=== PATIENT | male | born 1960 | race Caucasian/White ===

== ENCOUNTER 2020-03-31 10:07 | Outpatient (CLI) | payer OTHER, SELFPAY ==
--- NOTE | ~2020-03-31 | XR_ITS ---
XR elbow RT min 3V DATE: 03/31/2020 10:27 INDICATION: Left elbow pain and swelling TECHNIQUE: 4 views COMPARISON: None FINDINGS: Mild dorsal soft tissue swelling. No fracture or dislocation or joint effusion. No perioste al reaction or bone destruction. IMPRESSION: No fracture or dislocation or joint effusion Reviewed, dictated and finalized at location A.
== END 2020-03-31 10:08 | disposition home or self-care (01) ==
PROVIDERS: PCP Internal Medicine; Visit Provider Nurse Practitioner
DX: M25.529 Pain in unspecified elbow (principal); M79.89 Other specified soft tissue disorders
CPT/HCPCS: 73080

== ENCOUNTER 2021-07-21 10:20 | Outpatient (CLI) | payer BC, SELFPAY ==
--- NOTE | 2021-07-21 | ECG_ITS ---
Measurements Intervals [place] Rate: 62 P: 25 MD: 228 QRS: 17 QRSD: 138 T: -24 QT: 400 QTc: 407 Interpretive Statements SINUS RHYTHM WITH FIRST DEGREE AV BLOCK RIGHT BUNDLE BRANCH BLOCK CONSIDER INFERIOR INFARCT, AGE INDETERMINATE ABNORMAL ECG Electronically Signed On 07-21-2021 11:06:45 CDT by Ramon Holley D.O.
[2021-07-21 10:44] LABS: Hematocrit 44.3 % (42.0-52.0); Hemoglobin 15.8 g/dL (14.0-18.0)
[2021-07-21 11:08] LABS: Estimated Glomerular Filt Rate > 60; Glucose 146 mg/dL (65-110)
[2021-07-21 11:51] LABS: Urine Cotinine NEGATIVE
[2021-07-21 13:01] LABS: Hemoglobin A1C 6.6 % (<5.7)
== END 2021-07-21 10:21 | disposition home or self-care (01) ==
PROVIDERS: PCP Internal Medicine; Visit Provider Orthopaedic Surgery
DX: E78.5 Hyperlipidemia, unspecified (principal); E78.1 Pure hyperglyceridemia; I10 Essential (primary) hypertension; E11.9 Type 2 diabetes mellitus without complications; Z01.818 Encounter for other preprocedural examination; M17.11 Unilateral primary osteoarthritis, right knee; I45.10 Unspecified right bundle-branch block; I44.0 Atrioventricular block, first degree
CPT/HCPCS: 80307; 82040; 82565; 82947; 83036; 85014; 85018; 93005

== ENCOUNTER 2021-09-06 09:39 | Outpatient (CLI) | payer BC, SELFPAY ==
[2021-09-06 10:58] LABS: Basophils Absolute Auto 0.1 K/mm3 (0.0-0.1); Eosinophils Absolute Auto 0.1 K/mm3 (0-0.3); Eosinophils Percent Auto 2.5 % (0-4.4); Hematocrit 46.4 % (42.0-52.0); Hemoglobin 16.2 g/dL (14.0-18.0); Immature Granulocyte Absolute 0.05 K/mm3 (0.00-0.031); Lymphocytes Absolute Auto 1.75 K/mm3 (0.9-3.2); Lymphocytes Percent Auto 34.3 % (18.3-44.2); Mean Corpuscular HGB Conc 34.9 g/dl (32-36); Mean Corpuscular Hemoglobin 33.2 pg (26-34); Mean Corpuscular Volume 95.1 fl (80-100); Mean Platelet Volume 8.7 fl (7.4-10.4); Monocytes Absolute Auto 0.5 K/mm3 (0.1-0.6); Monocytes Percent Auto 9.4 % (2.6-8.5); Neutrophils Absolute Auto 2.6 K/mm3 (1.3-6.7); Neutrophils Percent Auto 51.8 % (45.5-73.1); Platelet Count Result 238 k/mm3 (150-375); Red Blood Count 4.88 M/mm3 (4.6-6.20); Red Cell Distribution Width 12.1 % (11.5-14.5); White Blood Count 5.1 K/mm3 (4.5-10.0)
[2021-09-06 11:07] LABS: Albumin Level 4.9 g/dL (3.5-5.1); Urine Cotinine NEGATIVE
[2021-09-06 11:10] LABS: Anion Gap 10 mmol/L (8-16); Blood Urea Nitrogen 23 mg/dL (9-20); Calcium 9.9 mg/dL (8.4-10.2); Carbon Dioxide 25 mmol/L (22-30); Chloride 102 mmol/L (98-107); Estimated Glomerular Filt Rate > 60; Glucose 150 mg/dL (65-110); Potassium 4.2 mmol/L (3.4-5.0); Sodium 137 mmol/L (137-145)
== END 2021-09-06 09:40 | disposition home or self-care (01) ==
LOC: ANHSURGERY 09:43
PROVIDERS: Anesthesiology; PCP Internal Medicine; Visit Provider Orthopaedic Surgery
DX: Z01.812 Encounter for preprocedural laboratory examination (principal); M17.11 Unilateral primary osteoarthritis, right knee; E11.9 Type 2 diabetes mellitus without complications
CPT/HCPCS: 36415; 80048; 80307; 82040; 85025; 87081

== ENCOUNTER 2021-09-30 00:34 | Day surgery (SDC) | payer BC, SELFPAY ==
[2021-09-06 09:51] VITALS: BMI 28.9
--- NOTE | 2021-09-06 10:13 | PC.NURSE ---
Report to the Outpatient Waiting Room, entrance under the green pavilion located off [facility], at time 0600 on date _09/30/21 . OR Time: . - You and your visitor will be asked a series of questions to screen for COVID 19 for your protection. - A mask is required within the hospital. - Only one visitor is allowed at this time. Patient visitors will be guided where to wait when not with patient. Preoperative COVID Testing Requirements: No COVID Test needed if: (proof is required; if not received patient will have Rapid Test prior to entry) - Patient has received COVID Vaccine at least 14 days prior to procedure date or - Patient has positive COVID test result within last 90 days of surgery date. COVID Test needed if above criteria is not met If not COVID vaccinated a COVID test must be conducted within 72 hours of surgery and patient is asked to isolate self from time of testing until procedure. You will go to the [facility] for your COVID testing. The [facility] site is located at the corner of [address] [facility]. You will only be called if COVID results are positive and your surgeon may reschedule your elective surgery date. Patients may have clear liquids (water, carbonated beverages, clear teas, apple juice) until 3 hours prior to surgery with a maximum of 20 ounces. - No food from midnight until time of surgery - Infants may have breast milk until 4 hours before surgery, infant formula 6 hours prior to surgery. - Children will be allowed to drink immediately following surgery. If applicable, please bring a bottle or sippy cup to assist with drinking. Juice, water, soda, and popsicles are readily available. For infants on formula, please bring formula the day of surgery. Pacifiers are allowed. Take the following medications with a SIP of water the morning of surgery: _NONE Medications to discontinue per physician ___ASPIRIN AND ALEVE 7 DAYS PRE OP AND ALL VITAMINS AND SUPPLEMENTS 3 DAYS PRE OP Date to take last dose_ASPIRIN/ALEVE 09/22/21 VITAMINS AND SUPPLEMENTS 09/26/21 Please no make-up, nail albanian, hairspray, perfume, deodorant, or body powder the day of surgery. No jewelry (including any body piercings) or valuables the day of surgery, leave them at home. Please take a shower or bath the night before, or the morning of, surgery with an antibacterial soap. Wear comfortable, loose fitting clothing. Children are encouraged to wear pajamas. - Jewelry must be removed prior to entering the operating room. Rings and piercings that are not removed may be cut off. - The hospital will not accept responsibility for valuables. - Please leave all valuables, including medications, at home the day of surgery. TOTAL JOINT CLASS 09/08/21 AT 10 AM CLASSROOM 1&2 If you are going home after surgery, a licensed road driver must drive you home. - NO public transportation without another adult. - We recommend that an adult stay with you for 24 hours following discharge. - We also recommend that you do not drive, make important decision, drink alcoholic beverages, or take any drugs that were not prescribed by your health care provider for at least 24 hours after your discharge time. For Pediatric surgeries, we recommend two adults accompany the child home (only one inside the building at this time). Follow any additional instructions given to you from your surgeon. VERBAL instructions given to __PATIENT and asked if any additional questions and then verbalized understanding. Patient advised to call surgeon office or pre surgery nurse liaison [phone] if any additional questions.
[2021-09-06 10:29] VITALS: BP 119/76; PULSE 66; RESP 16; TEMP 36.2; O2SAT 99
--- NOTE | 2021-09-29 15:28 | P.PNAN_ITS ---
Anes - Initial Pre Proc Eval Procedure: Operation Date: 09/30/21 07:30 Proposed Procedures p Right Total Knee Arthroplasty - Phoenix Mclean MD Date/Time: 09/29/21 15:28 Surgeon: Phoenix Mclean MD Pre Op Diagnosis: primary oa right knee Patient Data Age: 61 Gender: M Height: 1.8 m Weight: 94 kg Last Vital Signs Temp 36.2 C L 09/06/21 10:29 Pulse 66 09/06/21 10:29 Resp 16 09/06/21 10:29 BP 119/76 09/06/21 10:29 Pulse Ox 99 09/06/21 10:29 Allergies Allergy/AdvReac Type Severity Reaction Status Date / Time sulfamethoxazole AdvReac Nausea Verified 09/30/21 06:43 Home Medications Medication Instructions Recorded Confirmed Type ascorbate calcium (vitamin C) 500 500 mg PO BID 10/24/19 09/30/21 History mg tablet aspirin 81 mg tablet,delayed 81 mg PO DAILY 10/24/19 09/30/21 History release multivitamin 1 tablet PO DAILY 10/24/19 09/30/21 History omega-3 fatty acids 1,000 mg 1,000 mg PO BID cap 06/05/20 09/30/21 History capsule blood sugar diagnostic #100 ea 06/08/21 09/06/21 Rx blood-glucose meter #1 ea 06/08/21 09/06/21 Rx lancets #100 ea 06/08/21 09/30/21 Rx acetaminophen [Tylenol] 650 mg PO PRN PRN 09/06/21 09/30/21 History amlodipine 5 mg PO QPM 09/06/21 09/30/21 History calcium carbonate [Tums E-X Sugar 300 mg PO PRN PRN 09/06/21 09/30/21 History Free] lisinopril 10 mg PO QPM 09/06/21 09/30/21 History naproxen sodium [Aleve] 220 mg PO Q12H PRN 09/06/21 09/30/21 History rosuvastatin 10 mg PO QPM 09/06/21 09/30/21 History metformin 500 mg PO BID 09/30/21 09/30/21 History Patient hx anesthesia problems: none Family hx anesthesia problems: none Results Review: All pre-operative results and documents have been reviewed as part of the pre-operative evaluation. [facility] Past Medical History Medical History (Updated 09/29/21 @ 15:28 by Eliecer Nair MD) Polk's palsy Chronic fatigue Erectile dysfunction Essential hypertension Hyperlipidemia Hypertriglyceridemia Nephrolithiasis RONALD (obstructive sleep apnea) Type 2 diabetes mellitus without complication, without long-term current use of insulin Social History Social History Additional smoking assessment comments: DENIES ANY FORM OF TOBACCO USE Alcohol intake: current Drinks per week: 1 Alcohol use details: occasionally Living arrangements: with family Spiritual care concerns: No Anes - Eval Final PreProcedure Day of Procedure 09/29/21 15:28 Patient weight: overweight Heart: regular rate and rhythm Lungs: clear to auscultation and normal air movement Airway: Mallampati scale class II Neurological: alert and oriented Last oral intake: >/= 8 hours ASA classification: III Emergent: no Anesthetic plan: proceed Anesthesia type and monitoring: general LMA Results Review: All pre-operative results and documents have been reviewed as part of the pre-operative evaluation. Informed Consent: The patient's anesthetic plan and its attendant risks and benefits were discussed with the patient/family/POA. Questions were solicited and answers provided to the satisfaction of the patient/family/POA.
--- NOTE | 2021-09-29 15:29 | WPDANESPNB ---
Anes - Peripheral Nerve Block Date/Time: 09/29/21 15:29 I have discussed with the patient/family/POA the placement of a peripheral nerve block for post-operative pain management, including associated risks, benefits, complications, and side effects. Alternative methods of post-operative analgesia were detailed. Questions were solicited and answers provided to the satisfaction of the patient/family/POA. Time-Out: A pre-procedural Time-Out was completed immediately before starting the procedure and confirmed: Patient Identification, Site, Procedure, Patient Position and the Availability of Requisite Equipment. Clinical Indications: Acute post-operative pain management requested by the operative surgeon. Nerve Block Insertion Note Anes-nerve block: adductor canal right Patient position: supine Skin prep: chlorhexidine Needle: 22 gauge, stimulating, insulated echogenic needle. Needle length: 80 mm Technique: ultrasound Technique comment: in plane Injectate: bupivacaine 0.25% with epi 5 mcg/ml (30cc) Observations: tolerated well Complications: none Procedure start time:: 720 Procedure end time:: 725
[2021-09-30] VITALS (9 sets, daily range): BP systolic 123–149; BP diastolic 80–98; PULSE 62–73; RESP 12–16; TEMP 35.5–36.8; O2SAT 92–100
--- NOTE | ~2021-09-30 | XR_ITS ---
EXAMINATION: XR knee RT 2V DATE: 09/30/2021 10:11 INDICATION: Total right knee arthroplasty. Postop. TECHNIQUE: 2 views of right knee were obtained. COMPARISON: Right knee radiographs 09/22/2015 FINDINGS: There is a total right knee arthroplasty with patellar resurfacing in near-anatomic alignme nt. No fracture. There is gas in the knee joint and soft tissues, consistent with recent surgery. IMPRESSION: 1. Total right knee arthroplasty in near-anatomic alignment. Reviewed, dictated and finalized at location A. OWS TESTER
[2021-09-30] MEDS: LACTATED RINGERS 1,000 ML 30 ML IV CONT ×2 (06:28→09:47)
[2021-09-30] MEDS: ACETAMINOPHEN 500 MG TABLET 1000 MG PO (06:32)
[2021-09-30] MEDS: TRANEXAMIC ACID 1,000MG/ISO100 1,000 MG/100 ML BAG 200 MG IVPB (06:33)
[2021-09-30 06:35] LABS: Glucose Point of Care 128 mg/dl (65-105)
--- NOTE | 2021-09-30 07:12 | WPDHPUPDATE1 ---
History and Physical Update Update Date/Time: 09/30/21 07:12 History and Physical has been reviewed, including an updated exam of the patient. There are NO changes in the patient's condition. Risks, benefits, and alternatives have been discussed and questions answered. Patient agrees to proceed with procedure.
[2021-09-30] MEDS: ceFAZolin 2 GM/D5W 50 ML 2 GM/50 ML BAG IVPB ×2 (07:34→13:30)
[2021-09-30 10:05] LABS: Glucose Point of Care 198 mg/dl (65-105)
--- NOTE | 2021-09-30 10:05 | SUR.PHASEI ---
1005 2 VIEWS OF PORTABLE XRAY TAKEN OF RT KNEE.
[2021-09-30] MEDS: fentaNYL CITRATE INJ (*CRX) 100 MCG/2 ML VIAL 25 MCG IV PUSH ×3 (10:27→11:03)
[2021-09-30] MEDS: SODIUM CHLORIDE 0.9% IV 1,000 ML 125 ML IV CONT (12:17)
[2021-09-30] MEDS: oxyCODONE HCL (*CRX) 5 MG TAB IR PO (12:32)
--- NOTE | 2021-09-30 12:53 | ADMGEN ---
This patient, Ayush Salinas, was admitted to [facility]. Patient/family oriented to hospital policies and general routines including ID bracelet, bed and alarms, visiting hours, pain management, procedures, bathroom and other care routines, personal items, smoking policy, room service/diet, and visiting hours. Information on how to activate the Rapid Response Team has been discussed. Patient/Family are encouraged to report perceived risks to care and to ask questions if they do not understand what they are told or what they should do.
--- NOTE | 2021-09-30 13:43 | PM.DS ---
DS: Admitting Diagnosis Discharge Date 09/30/21 Admitting Diagnosis OA knee Right DS: Discharge Diagnosis Discharge Diagnosis (1) Status post total right knee replacement: Code(s): Z96.651 - Presence of right artificial knee joint Status: Acute Assessment and Plan: Postop day 1: Right total knee arthroplasty. Patient tolerated procedure well. No complications. Pain manageable with pain medication. No numbness or tingling. Would like to go home same day. This is reasonable. We had a lengthy discussion regarding postoperative wound care, limitations, expectations, and exercises. Patient shows good understanding. He has had initial physical therapy and is tolerating it well. DVT prophylaxis: 81 mg baby aspirin b.i.d. for 14 days. Short frequent walks. Compression socks. Pain medication: Percocet. Meloxicam. Prednisone. Patient has followup appointment with Dr. Mclean in 3 weeks. DS: Summary Hospital Course Reason for hospitalization: Total knee arthroplasty Hospital Course: Patient tolerated procedure well. Has had initial PT/OT and made good progress. Status at Discharge Functional status at discharge: uses cane/walker Overall status at discharge: patient is progressing back to baseline Time Spent with Patient Time attestation: Total time spent providing and/or coordinating discharge services: Exam Narrative: Normal weight Male. Resting comfortably in bed. No acute distress. A&O x3. Wearing compression socks bilaterally. Dressing intact with no drainage. Mild swelling. No ecchymosis. No erythema. No hematoma. ROM limited to pain. Calf nontender. Neurologic status intact. No varicosities. Distal pulses palpable. DS: Data Data Completed and Pending Labs on day of discharge: Labs from last 24 hours 09/30/21 09/30/21 09/30/21 10:03 06:29 06:20 POC Capillary Glucose 198 H 128 H Blood Type B Positive Antibody Screen Negative Discharge Plan Discharge Patient Disposition: Home, Self-Care Discharge Instructions: See instruction sheet Stand Alone Forms: General Discharge Instructions Follow-up/Referrals: Kriss Beth PA [Physician Survey Party Chief] - Discharge Medications: New meloxicam 15 mg tablet 15 mg PO DAILY Qty: 30 RF: 0 aspirin 81 mg tablet,delayed release (DR/EC) 81 mg PO BID 14 Days Qty: 28 RF: 0 oxycodone-acetaminophen 5-325 mg tablet 1 - 2 tablet PO Q4-6H MDD 6 PRN (Reason: pain) Qty: 30 RF: 0 prednisone 5 mg tablet 5 mg PO DAILY 21 Days Qty: 21 RF: 0 Continued multivitamin Tablet 1 tablet PO DAILY RF: 0 ascorbate calcium (vitamin C) 500 mg tablet 500 mg PO BID RF: 0 omega-3 fatty acids [Fish Oil Concentrate] 1,000 mg capsule 1,000 mg PO BID RF: 0 amlodipine 5 mg tablet 5 mg PO QPM RF: 0 lisinopril 10 mg tablet 10 mg PO QPM RF: 0 rosuvastatin 10 mg tablet 10 mg PO QPM RF: 0 acetaminophen [Tylenol] 325 mg Capsule 650 mg PO PRN PRN (Reason: Pain) RF: 0 calcium carbonate 300 mg (750 mg) Tablet,Chewable 300 mg PO PRN PRN (Reason: Heartburn) RF: 0 metformin 500 mg tablet 500 mg PO BID RF: 0 (DME) blood-glucose meter [Accu-Chek Guide Me Glucose Mtr] Misc See Rx Instructions .Route Qty: 1 RF: 0 (DME) Accu-Chek Guide test strips Strip See Rx Instructions .Route Qty: 100 RF: 3 (DME) lancets [Accu-Chek Softclix Lancets] Misc See Rx Instructions .Route Qty: 100 RF: 3 Held aspirin [Adult Low Dose Aspirin] 81 mg tablet,delayed release (DR/EC) 81 mg PO DAILY RF: 0 Hold Instructions: Resume on 10/14/21. naproxen sodium [Aleve] 220 mg Tablet 220 mg PO Q12H PRN (Reason: Pain) RF: 0 Hold Instructions: Resume on 10/31/21.
--- NOTE | 2021-09-30 14:21 | PCOTNOTE ---
Order cancelled being discharged after being evaluated by physical therapy.
--- NOTE | 2021-09-30 16:33 | P.OP_ITS ---
Procedure Note - Detailed Date of Procedure 09/30/21 Pre-op Diagnosis primary oa right knee Post-op Diagnosis same Procedure Performed Right total knee arthroplasty. Surgeon Phoenix Mclean MD Feed Management Advisor Kriss Beth PA-C Anesthesia general Indications Severe patellofemoral arthritis. Failed conservative treatment. Findings Good bone quality. 8 mm distal femoral resection. Slight relief of the PCL on the tibia. 3 degree external rotation on the femur. Description of Procedure The patient was given a nerve block preoperatively, and then brought to the operating room. A general anesthetic was administered. The leg was prepped and draped in the usual sterile fashion. The limb was elevated and the tourniquet inflated to 300 mmHg during initial exposure. A longitudinal incision was created along the medial border of the patella and patellar tendon, and a trivector approach to the knee was performed. No medial release was taken. The knee was then flexed. The osteophytes were carefully removed. The intramedullary guide was placed in the femoral canal. The distal femoral resection was then taken with the oscillating saw. The collateral ligaments were carefully protected. The tibia was carefully exposed. The jig was applied, and the proximal tibia was resected according to preoperative plan. The knee was balanced in extension. Appropriate releases were taken where needed. The anterior cruciate ligament and meniscal remnants were removed. The posterior cruciate ligament was preserved. The patella was measured. Patellar resection was carried out with the oscillating saw. The lug holes drilled. The femur was sized and rotation assessed using a combination of gap balancing, posterior referencing, and the AP axis. The 4 in 1 cutting block was used to finish the femoral cuts after equal gaps were assured. The lug holes were drilled. The osteophytes were carefully removed from the back of the knee. The knee was copiously irrigated with antibiotic solution periodically throughout the procedure. The meniscal remnants were removed. The spacer block was used to confirm equal flexion and extension gaps. Further releases were performed as needed. The tibia was sized and broached. The bony surfaces were prepared for cementing with pulsatile lavage. The real tibial component was cemented into position followed by press fitting the femoral component. Excess cement was carefully removed. The patella component was press-fit. Patellar tracking was carefully assessed. No additional releases were required. The wound was closed with #1 Vycril suture, #2 Quill suture, 0-Quill suture, and 2-0 Quill suture followed by Steri-Strips. A sterile bulky dressing was applied. Meticulous hemostasis was maintained throughout the procedure. There were no complications. The patient was extubated and brought to the recovery room in stable condition after the application of sterile dressing with Hector bandage. Physician assistant inventory manager, Kriss Beth PA-C, required for surgery; including patient positioning, draping, tissue retraction, maintaining instrument position, cement removal, wound closure, and dressing placement. Implants 8villagesathlon knee system, low profile cemented tibia size 6, press-fit femoral component size 6 ,and an 9 mm cruciate retaining polyethylene insert. 35mm asymmetric tritanium metal backed press-fit patella component. Estimated Blood Loss -100.0 Tourniquet Time 8 Drains No Packing No Pathology none sent Complications No immediate complications Condition stable Disposition observation
== END 2021-09-30 13:45 | disposition home or self-care (01) ==
LOC: ANHSURGERY 06:01 → ANHSUROVER 11:42
PROVIDERS: PCP Internal Medicine; Visit Provider Orthopaedic Surgery
PROC: (CPT 27447; principal; 2021-09-30 07:30)
DX: M17.11 Unilateral primary osteoarthritis, right knee (principal); G89.18 Other acute postprocedural pain; I10 Essential (primary) hypertension; E78.5 Hyperlipidemia, unspecified; E78.1 Pure hyperglyceridemia; G47.33 Obstructive sleep apnea (adult) (pediatric); E11.9 Type 2 diabetes mellitus without complications; Z79.82 Long term (current) use of aspirin; Z79.84 Long term (current) use of oral hypoglycemic drugs
CPT/HCPCS: 27447; 64447; 36415; 73560; 82948; 86850; 86900; 86901; 97110; 97161; A9270; C1713; C1776; J0131; J0171; J0690; J1100; J1885; J2250; J2270; J2405; J2704; J2795; J3010; J7030; J7120

== ENCOUNTER 2022-07-07 07:02 | Outpatient (CLI) | payer BC, SELFPAY ==
[2022-07-07 07:18] LABS: Hematocrit 45.5 % (42.0-52.0); Hemoglobin 15.7 g/dL (14.0-18.0)
[2022-07-07 07:26] LABS: Urine Cotinine NEGATIVE
[2022-07-07 07:28] LABS: Albumin Level 4.7 g/dL (3.5-5.1); Estimated Glomerular Filt Rate > 60; Glucose 134 mg/dL (65-110)
[2022-07-07 07:30] LABS: Hemoglobin A1C 6.2 % (<5.7)
--- NOTE | 2022-07-07 07:55 | ECG_ITS ---
Measurements Intervals [place] Rate: 59 P: 28 ME: 260 QRS: 22 QRSD: 125 T: -7 QT: 401 QTc: 398 Interpretive Statements SINUS BRADYCARDIA WITH FIRST DEGREE AV BLOCK RIGHT BUNDLE BRANCH BLOCK MINIMAL Q WAVES- INFERIOR LEADS ABNORMAL ECG COMPARED TO ECG 07/21/2021 10:55:41 HEART RATE HAS DECREASED Electronically Signed On 07-07-2022 9:43:52 CDT by Ramon Holley D.O.
== END 2022-07-07 07:03 | disposition home or self-care (01) ==
PROVIDERS: PCP Internal Medicine; Visit Provider Orthopaedic Surgery
DX: M17.12 Unilateral primary osteoarthritis, left knee (principal); I10 Essential (primary) hypertension; E78.2 Mixed hyperlipidemia; E11.9 Type 2 diabetes mellitus without complications
CPT/HCPCS: 80307; 82040; 82565; 82947; 83036; 85014; 85018; 93005

== ENCOUNTER 2022-09-07 09:34 | Outpatient (CLI) | payer BC, SELFPAY ==
[2022-09-07 10:48] LABS: Basophils Percent Auto 0.7 % (0.2-1.2); Eosinophils Absolute Auto 0.1 K/mm3 (0-0.3); Eosinophils Percent Auto 1.2 % (0-4.4); Hematocrit 44.7 % (42.0-52.0); Hemoglobin 15.4 g/dL (14.0-18.0); Immature Granulocyte Absolute 0.02 K/mm3 (0.00-0.031); Immature Granulocyte Percent A 0.4 % (0-0.5); Lymphocytes Absolute Auto 1.57 K/mm3 (0.9-3.2); Lymphocytes Percent Auto 27.5 % (18.3-44.2); Mean Corpuscular HGB Conc 34.5 g/dl (32-36); Mean Corpuscular Hemoglobin 33.5 pg (26-34); Mean Corpuscular Volume 97.2 fl (80-100); Mean Platelet Volume 8.5 fl (7.4-10.4); Monocytes Absolute Auto 0.6 K/mm3 (0.1-0.6); Monocytes Percent Auto 9.6 % (2.6-8.5); Neutrophils Absolute Auto 3.5 K/mm3 (1.3-6.7); Neutrophils Percent Auto 60.6 % (45.5-73.1); Platelet Count Result 224 k/mm3 (150-375); Red Cell Distribution Width 12.4 % (11.5-14.5); White Blood Count 5.7 K/mm3 (4.5-10.0)
[2022-09-07 10:50] LABS: Anion Gap 13 mmol/L (8-16); Blood Urea Nitrogen 20 mg/dL (9-20); Calcium 9.1 mg/dL (8.4-10.2); Carbon Dioxide 24 mmol/L (22-30); Chloride 100 mmol/L (98-107); Estimated Glomerular Filt Rate > 60; Glucose 134 mg/dL (65-110); Potassium 4.2 mmol/L (3.4-5.0); Sodium 137 mmol/L (137-145)
[2022-09-07 10:50] LABS: Urine Cotinine NEGATIVE
== END 2022-09-07 09:35 | disposition home or self-care (01) ==
LOC: ANHSURGERY 09:35
PROVIDERS: Anesthesiology; PCP Internal Medicine; Visit Provider Orthopaedic Surgery
DX: M17.12 Unilateral primary osteoarthritis, left knee (principal); E11.9 Type 2 diabetes mellitus without complications; Z01.818 Encounter for other preprocedural examination
CPT/HCPCS: 36415; 80048; 80307; 82040; 85025; 87081

== ENCOUNTER 2022-09-29 01:17 | Day surgery (SDC) | payer BC, SELFPAY ==
[2022-09-07 09:46] VITALS: BMI 28.3
--- NOTE | 2022-09-07 10:02 | PC.NURSE ---
Addendum entered by Rosie Otero RN 09/07/22 10:15: STACIEA 09/30/21 ATTENDED TOTAL JOINT CLASS WITHIN THE YEAR.LATOYA AWARE AND STATES HE DOESN'T NEED TO ATTEND [facility] ON 09/14/22 Original Note: Report to the Outpatient Waiting Room, entrance under the green pavilion located off [facility], at time ___0600____ on date __09/29/22 . Planned Procedure Time: _729 . Time changes happen often and if your time is changed the preop area will call you the afternoon before. - You and your visitor will be asked to self-screen and do not enter if you have any COVID symptoms. - Only one visitor is requested with a max of two and NO children visitors are allowed at this time. - The patient visitor may be requested to leave or wait in car when not with patient due to distancing restrictions. - A mask is optional within the hospital. Patients may have clear liquids (water, carbonated beverages, clear teas, apple juice) until 3 hours prior to surgery with a maximum of 20 ounces. - No food from midnight until time of surgery - Infants may have breast milk until 4 hours before surgery, infant formula 6 hours prior to surgery. - Children will be allowed to drink immediately following surgery. If applicable, please bring a bottle or sippy cup to assist with drinking. Juice, water, soda, and popsicles are readily available. For infants on formula, please bring formula the day of surgery. Pacifiers are allowed. Take the following medications with a SIP of water the morning of surgery: ____AMLODIPINE Medications to discontinue per physician ___ASPIRIN AND ALEVE 7 DAYS PRE OP PER DR BEAUCHAMP. ALL VITAMINS AND SUPPLEMENTS 3 DAYS PRE OP Date to take last dose__ASPIRIN /ALEVE 09/21/22 ALL VIT/SUPP 09/25/22 Please no make-up, nail romansh, hairspray, perfume, deodorant, or body powder the day of surgery. No jewelry (including any body piercings) or valuables the day of surgery, leave them at home. Please take a shower or bath the night before, or the morning of, surgery with an antibacterial soap. Wear comfortable, loose fitting clothing. Children are encouraged to wear pajamas. - Jewelry must be removed prior to entering the operating room. Rings and piercings that are not removed may be cut off. - The hospital will not accept responsibility for valuables. - Please leave all valuables, including medications, at home the day of surgery. TOTAL JOINT CLASS 09/14/22 AT 10 AM If you are going home after surgery, a licensed jukebox route driver must drive you home. - NO public transportation without another adult if you receive anesthesia. - We recommend that an adult stay with you for 24 hours following discharge. - We also recommend that you do not drive, make important decision, drink alcoholic beverages, or take any drugs that were not prescribed by your health care provider for at least 24 hours after your discharge time Follow any additional instructions given to you from your surgeon. If you or anyone in your household have experienced Covid symptoms in the past week, please notify your surgeon or the nurse liaison at the phone number below for possible testing. VERBAL AND WRITTEN instructions given to ___PATIENT and asked if any additional questions and then verbalized understanding. Patient advised to call surgeon office or pre surgery nurse liaison [phone] if any additional questions.
[2022-09-07 10:25] VITALS: BP 117/75; PULSE 57; RESP 18; TEMP 36.7; O2SAT 98
[2022-09-29] VITALS (11 sets, daily range): BP systolic 112–131; BP diastolic 67–81; PULSE 65–86; RESP 10–16; TEMP 36.3–37.2; O2SAT 94–99
--- NOTE | ~2022-09-29 | XR_ITS ---
EXAMINATION: XR knee LT 2V DATE: 09/29/2022 09:59 INDICATION: Total left knee arthroplasty. Postop. TECHNIQUE: 2 views of left knee were obtained. COMPARISON: Left knee radiograph 03/09/2022 FINDINGS: There is a total left knee arthroplasty with patellar resurfacing in near-anatomic alignmen t. No fracture. There is gas in the knee joint and soft tissues, consistent with recent surgery. IMPRESSION: 1. Total left knee arthroplasty in near-anatomic alignment. Reviewed, dictated and finalized at location A. LY CRIB ATTENDANT
[2022-09-29] MEDS: ACETAMINOPHEN 500 MG TABLET 1000 MG PO (06:12)
[2022-09-29 06:45] LABS: Glucose Point of Care 144 mg/dl (65-105)
[2022-09-29] MEDS: TRANEXAMIC ACID 1,000MG/ISO100 1,000 MG/100 ML BAG 200 MG IVPB (06:56)
--- NOTE | 2022-09-29 07:04 | WPDANESEPPF ---
Anes - Initial Pre Proc Eval Procedure: Operation Date: 09/29/22 07:30 Proposed Procedures p Left Total Knee Arthroplasty - Phoenix Mclean MD Date/Time: 09/29/22 07:04 Surgeon: Phoenix Mclean MD Pre Op Diagnosis: primary OA left knee Patient Data Age: 62 Gender: M Height: 1.8 m Weight: 92 kg Last Vital Signs Temp 36.3 C L 09/29/22 06:51 Pulse 65 09/29/22 06:51 Resp 16 09/29/22 06:51 BP 123/75 09/29/22 06:51 Pulse Ox 98 09/29/22 06:51 O2 Del Method Room Air 09/29/22 06:51 Allergies Allergy/AdvReac Type Severity Reaction Status Date / Time sulfamethoxazole AdvReac Nausea Verified 09/29/22 06:09 Home Medications Medication Instructions Recorded Confirmed Type multivitamin 1 tablet PO DAILY 10/24/19 09/29/22 History omega-3 fatty acids 1,000 mg 1,000 mg PO BID 06/05/20 09/29/22 History capsule (Fish Oil Concentrate) blood sugar diagnostic (Accu-Chek #100 ea 06/08/21 09/07/22 Rx Guide test strips) blood-glucose meter (Accu-Chek #1 ea 06/08/21 09/07/22 Rx Guide Me Glucose Meter) lancets (Accu-Chek Softclix #100 ea 06/08/21 09/07/22 Rx Lancets) acetaminophen 325 mg capsule 650 mg PO PRN PRN Pain 09/06/21 09/29/22 History (Tylenol) calcium carbonate 300 mg (750 mg) 300 mg PO PRN PRN Heartburn 09/06/21 09/29/22 History chewable tablet naproxen sodium 220 mg tablet 220 mg PO Q12H PRN Pain 09/06/21 09/29/22 History (Aleve) aspirin 81 mg tablet,delayed 81 mg PO BID 14 days #28 tabs 09/30/21 09/29/22 Rx release ascorbate calcium (vitamin C) 500 500 mg PO BID #90 tabs 02/21/22 09/29/22 Rx mg tablet amlodipine 5 mg tablet 5 mg PO QPM #90 tabs 02/23/22 09/29/22 Rx rosuvastatin 10 mg tablet 10 mg PO QPM #90 tabs 02/23/22 09/29/22 Rx metformin 500 mg tablet 500 mg PO DAILY #90 tabs 03/28/22 09/29/22 Rx triamcinolone acetonide 0.1 % 1 applic topical BID #30 grams 06/03/22 09/29/22 Rx topical cream lisinopril 10 mg tablet 10 mg PO DAILY #90 tabs 07/20/22 09/29/22 Rx Laboratory Tests 09/29/22 06:33 POC Capillary Glucose 144 mg/dl H mg/dl (65-105) Patient hx anesthesia problems: none Family hx anesthesia problems: none Results Review: All pre-operative results and documents have been reviewed as part of the pre-operative evaluation. [facility] Past Medical History Medical History Polk's palsy Chronic fatigue Erectile dysfunction Essential hypertension Hyperlipidemia Hypertriglyceridemia Nephrolithiasis RONALD (obstructive sleep apnea) Type 2 diabetes mellitus without complication, without long-term current use of insulin Surgical History Surgical History History of total right knee replacement 09/30/2021 Social History Social History Smoking status: Never smoker Additional smoking assessment comments: DENIES ANY FORM OF TOBACCO USE Alcohol intake: current Drinks per week: 1 Alcohol use details: occasionally Substance use: never Lack of Transportation: No Lack of Food: Never True Current Housing: I Have Housing Concerned About Future Housing: No Difficulty Paying Gas/Electric Bills: No Difficulty Paying for Meds: No Currently Unemployed: No Education: High School Diploma/GED Difficulty w/ Childcare or Family Care: No Living arrangements: with family Spiritual care concerns: No Anes - Eval Final PreProcedure Day of Procedure 09/29/22 07:04 Patient weight: overweight Heart: regular rate and rhythm Lungs: clear to auscultation Airway: Mallampati scale class II Neurological: alert and oriented Last oral intake: >/= 8 hours ASA classification: III Emergent: no Anesthetic plan: proceed Anesthesia type and monitoring: general LMA and standard monitoring Results Review: All pre-operative results and documents lopes
[2022-09-29] MEDS: LACTATED RINGERS 1,000 ML 30 ML IV CONT ×2 (07:13→09:46)
--- NOTE | 2022-09-29 07:17 | WPDHPUPDATE1 ---
History and Physical Update Update Date/Time: 09/29/22 07:17 History and Physical has been reviewed, including an updated exam of the patient. There are NO changes in the patient's condition. Risks, benefits, and alternatives have been discussed and questions answered. Patient agrees to proceed with procedure.
[2022-09-29] MEDS: ONDANSETRON INJ 4 MG/2 ML VIAL IV PUSH ×3 (07:19→11:30)
--- NOTE | 2022-09-29 07:25 | WPDANESPNB ---
Anes - Peripheral Nerve Block Date/Time: 09/29/22 07:25 I have discussed with the patient/family/POA the placement of a peripheral nerve block for post-operative pain management, including associated risks, benefits, complications, and side effects. Alternative methods of post-operative analgesia were detailed. Questions were solicited and answers provided to the satisfaction of the patient/family/POA. Time-Out: A pre-procedural Time-Out was completed immediately before starting the procedure and confirmed: Patient Identification, Site, Procedure, Patient Position and the Availability of Requisite Equipment. Clinical Indications: Acute post-operative pain management requested by the operative surgeon. Nerve Block Insertion Note Anes-nerve block: adductor canal left Patient position: supine Skin prep: chlorhexidine Needle: 22 gauge, stimulating, insulated echogenic needle. Needle length: 80 mm Technique: ultrasound Technique comment: mid2mg [id number] Injectate: bupivacaine 0.5% with epi 5 mcg/ml (30ml no epi) and dexamethasone (mg) (4) Observations: tolerated well Complications: none Procedure start time:: 714 Procedure end time:: 721
[2022-09-29] MEDS: ceFAZolin 2 GM/D5W 50 ML 2 GM/50 ML BAG IVPB (07:27)
[2022-09-29] MEDS: GENTAMICIN BONE CEMENT REFOBACIN 1 EACH TOPICAL (09:07)
--- NOTE | 2022-09-29 09:56 | W.PM.PROC2 ---
Procedure Note - Detailed Date of Procedure 09/29/22 Pre-op Diagnosis primary OA left knee Post-op Diagnosis Same Procedure Performed Total knee arthroplasty, left knee. Surgeon Phoenix Mclean MD C.O.D. Audit Clerk Kriss Beth PA-C Anesthesia General and Regional (subsartorial block) Indications Primary patellofemoral arthritis. Findings Bone quality was excellent. 9 mm distal resection due to subtle cartilage on the distal femur. Severe patellofemoral disease confirmed. Early medial compartment disease noted. Slight PCL release. Description of Procedure The patient was brought to the operating room. A general anesthetic was administered. The leg was prepped and draped in the usual sterile fashion. The limb was elevated and the tourniquet inflated to 300 mmHg during initial exposure. A longitudinal incision was created along the medial border of the patella and patellar tendon, and a trivector approach to the knee was performed. A mild medial release was taken. The knee was then flexed. The osteophytes were carefully removed. The intramedullary guide was placed in the femoral canal. The distal femoral resection was then taken with the oscillating saw. The collateral ligaments were carefully protected. The tibia was carefully exposed. The jig was applied, and the proximal tibia was resected according to preoperative plan. The knee was balanced in extension. Appropriate releases were taken where needed. The anterior cruciate ligament and meniscal remnants were removed. The posterior cruciate ligament was preserved. The patella was measured. Patellar resection was carried out with the oscillating saw. The lug holes drilled. The femur was sized and rotation assessed using a combination of gap balancing, posterior referencing, and the AP axis. The 4 in 1 cutting block was used to finish the femoral cuts after equal gaps were assured. The osteophytes were carefully removed from the back of the knee. The knee was copiously irrigated with antibiotic solution periodically throughout the procedure. The meniscal remnants were removed. The spacer block was used to confirm equal flexion and extension gaps. No further releases were needed. The tibia was sized and broached. The bony surfaces were prepared for cementing with pulsatile lavage. The real tibia was cemented into position. The femur was press-fit. The patella was press-fit. Excess cement was carefully removed. Patellar tracking was carefully assessed. Slight PCL release improved posterior rollback. Copious irrigation then performed. The wound was closed with #1 Vicryl suture, #2, 2-0, and 3-0 barbed suture, followed by Steri-Strips. A sterile bulky dressing was applied. Meticulous hemostasis was maintained throughout the procedure, and the bipolar cautery device was used. The pain relieving mixture was injected into the periarticular tissues during the procedure. There were no complications. The patient was extubated and brought to the recovery room in stable condition after the application of sterile dressing with Hector bandage. Physician administrative support assistant, Kriss Beth PA-C, required for surgery; including patient positioning, draping, tissue retraction, maintaining instrument position, wound closure, and dressing placement. Implants Izooble Triathlon knee system, low profile cemented tibia size 6, press-fit cruciate retaining femoral component size 6 ,and a 9 mm cruciate retaining polyethylene insert. 35mm asymmetric tritanium patella component. Estimated Blood Loss -100.0 Tourniquet Time 12 Drains No Pathology None sent Complications No immediate complications Condition Stable Disposition PACU [facility] Billing Surgery - Charge Forward: Surgery Billing
[2022-09-29 10:06] LABS: Glucose Point of Care 190 mg/dl (65-105)
--- NOTE | 2022-09-29 10:13 | SUR.PHASEI ---
1013-Dr. Dickens aware of POC glucose 190-no orders received.
[2022-09-29] MEDS: FAMOTIDINE 20 MG/2 ML VIAL IV PUSH (12:32)
[2022-09-29] MEDS: diphenhydrAMINE HCl INJ 50 MG/ML VIAL 25 MG IV PUSH (12:32)
== END 2022-09-29 13:00 | disposition home or self-care (01) ==
PROVIDERS: PCP Internal Medicine; Visit Provider Orthopaedic Surgery
PROC: (CPT 27447; principal; 2022-09-29 07:30)
DX: M17.12 Unilateral primary osteoarthritis, left knee (principal); G89.18 Other acute postprocedural pain; I10 Essential (primary) hypertension; E78.5 Hyperlipidemia, unspecified; E11.9 Type 2 diabetes mellitus without complications; G47.33 Obstructive sleep apnea (adult) (pediatric); E78.1 Pure hyperglyceridemia; Z79.84 Long term (current) use of oral hypoglycemic drugs; Z79.82 Long term (current) use of aspirin
CPT/HCPCS: 27447; 64447; 36415; 73560; 82948; 86850; 86900; 86901; 97110; 97161; 97165; A9270; C1713; C1776; J0171; J0690; J1100; J1170; J1200; J1885; J2250; J2270; J2405; J2704; J2795; J3010; J7120

== ENCOUNTER 2023-08-01 09:13 | Emergency (ER) | payer MEDICARE, SELFPAY ==
[2023-08-01 09:23] VITALS: BP 127/78; PULSE 64; RESP 16; TEMP 36.8; O2SAT 100
--- NOTE | 2023-08-01 09:50 | ED.DENTAL ---
HPI - Dental/Oral General Chief complaint: Dental/Oral Stated complaint: Earache Time Seen by Provider: 08/01/23 09:40 Source: patient, RN notes reviewed and old records reviewed Mode of arrival: ambulatory Limitations: no limitations History of Present Illness HPI Narrative: 63 year old male who presents to express care with complaints of pain in front of right ear at TMJ area which increases when clenching down or opening his mouth wide. Patient saw dentist 3 weeks ago and then yesterday he had fillings done to his right upper and and left molars, did take preventative oral antibiotic prior to dental procedure since he has had total knee replacement. Dentist suggested that he should have his ear checked for infection did have cold symptoms about a month ago which have resolved.Patient has not taken any OTC pain medication for his complaints. MD Complaint: tooth pain (right jaw pain and right ear discomfort) Severity scale (1-10): 4 Exacerbating factors: other (clenching down and opening mouth wide) Treatment prior to arrival: none Related Data Allergies Allergy/AdvReac Type Severity Reaction Status Date / Time sulfamethoxazole AdvReac Nausea Verified 08/01/23 09:19 Review of Systems Review of Systems: CONSTITUTIONAL: Denies fever, chills, or sweats. ENT: Denies rhinorrhea, congestion, sore throat, Pain in front of right ear in TMJ area and some ear canal discomfort. CARDIOVASCULAR: Denies chest pain, palpitations, or edema. RESPIRATORY: Denies cough or dyspnea. SKIN: Denies rash or itching. MUSCULOSKELETAL: Denies myalgia. 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 Social History Social History Smoking status: Never smoker Additional smoking assessment comments: DENIES ANY FORM OF TOBACCO USE Alcohol intake: current Drinks per week: 1 Alcohol use details: occasionally Substance use: never Lack of Transportation: No Lack of Food: Never True Current Housing: I Have Housing Concerned About Future Housing: No Difficulty Paying Gas/Electric Bills: No Difficulty Paying for Meds: No Currently Unemployed: No Education: High School Diploma/GED Difficulty w/ Childcare or Family Care: No Living arrangements: with family Spiritual care concerns: No Comments At time of signature, agree with nursing past medical, surgical, social and family history. There is no relevant family history pertinent to the presenting complaint Exam Narrative: GENERAL: Well-appearing, well-nourished, and in no acute distress. HEAD: Normocephalic, atraumatic. EYES: PERRLA and EOMI. ENT: Nares clear, no rhinorrhea or epistaxis. Mucous membranes moist.No dental pain voiced no redness or swelling of gums, pain at right TMJ area and right ear canal has pimple in ear with some redness of canal TM normal NECK: Supple. no lymphadenopathy CHEST: Clear to auscultation. No respiratory distress.SAO2 100% on room air HEART: Regular rate and rhythm. No murmur heard. Normal peripheral pulses. SKIN: Warm, dry, no rash. NEURO: No focal deficits. Alert and oriented x3. Course Course Emergency Course: Patient is aware of diagnosis, understands and agrees to treatment plan. Anticipatory guidance given. Patient agrees to follow-up as directed and is aware of reasons to seek care
== END 2023-08-01 10:05 | disposition home or self-care (01) ==
PROVIDERS: Emergency Provider Registered Nurse; PCP Internal Medicine
DX: M26.621 Arthralgia of right temporomandibular joint (principal); H60.91 Unspecified otitis externa, right ear; E78.5 Hyperlipidemia, unspecified; I10 Essential (primary) hypertension; E78.1 Pure hyperglyceridemia; E11.9 Type 2 diabetes mellitus without complications; Z96.653 Presence of artificial knee joint, bilateral
CPT/HCPCS: 99213; G0463

== ENCOUNTER 2023-09-26 08:50 | Outpatient (CLI) | payer MEDICARE, SELFPAY ==
--- NOTE | ~2023-09-26 | XR_ITS ---
Left Knee Technique: AP, lateral, and sunrise views were obtained. Clinical History: Arthroplasty, pain COMPARISON: 11/17/2022 Findings: No fracture or dislocation is seen. Right knee arthroplasty is unchanged. No hardware compl ication seen. Soft tissues are unremarkable. No joint effusion is seen. Impression: No acute abnormality. Right knee arthroplasty remains in place. Reviewed, dictated and finalized at location M. ETING RECRUITER Impression: No acute abnormality. Right knee arthroplasty remains in place.
== END 2023-09-26 08:51 | disposition home or self-care (01) ==
PROVIDERS: PCP Internal Medicine; Visit Provider Orthopaedic Surgery
DX: Z96.652 Presence of left artificial knee joint (principal)
CPT/HCPCS: 73562

== ENCOUNTER 2024-03-01 14:07 | Outpatient (CLI) | payer MEDICARE, SELFPAY | END 2024-03-01 14:08 | disposition home or self-care (01) | LOC: ANHAUDASC 14:08 | PROVIDERS: PCP Internal Medicine; Visit Provider Otolaryngology | DX: H93.13 Tinnitus, bilateral (principal); H90.42 Sensorineural hearing loss, unilateral, left ear, with unrestricted hearing on the contralateral side; M26.601 Right temporomandibular joint disorder, unspecified; H74.01 Tympanosclerosis, right ear; Z97.4 Presence of external hearing-aid | CPT/HCPCS: 92557; 92567 ==

== ENCOUNTER 2024-05-14 10:47 | Outpatient (CLI) | payer MEDICARE, SELFPAY ==
--- NOTE | ~2024-05-14 | XR_ITS ---
XR wrist LT min 3V Ordering provider: Yoko Abreu NP History: . M25.539 - Pain in unspecified wrist . Comparison: March 22, 2021 FINDINGS: BONES: Bony fragment is seen posteriorly which may indicate triquetral fracture. Clinical evaluation for tenderness in the area advised. No definite scaphoid fracture. JOINT SPACES: Well maintained. SOFT TISSUES: Normal. IMPRESSION: triquetral bone fracture. Reviewed, dictated and finalized at location A. IMPRESSION: triquetral bone fracture.
== END 2024-05-14 10:48 ==
PROVIDERS: PCP Internal Medicine; Visit Provider Nurse Practitioner
DX: M25.532 Pain in left wrist (principal); S62.112A Displaced fracture of triquetrum [cuneiform] bone, left wrist, initial encounter for closed fracture; X58.XXXA Exposure to other specified factors, initial encounter
CPT/HCPCS: 73110

== ENCOUNTER 2024-05-23 09:30 | Outpatient (CLI) | payer MEDICARE, SELFPAY ==
--- NOTE | ~2024-05-23 | MR_ITS ---
EXAMINATION: MR wrist LT wo con DATE: 05/23/2024 10:16 INDICATION: Unspecified left wrist pain. Triquetral fracture. TECHNIQUE: Magnetic resonance imaging (MRI) of the left wrist was performed without intravenous contr ast. Sequences performed include axial PD-weighted FSE and PD-weighted FS FSE, coronal PD-weighted FS FSE and T1-weighted SE, and sagittal PD-weighted FS FSE and PD-weighted FSE. COMPARISON: None FINDINGS: Intrinsic ligaments: The lunotriquetral ligament is normal. There is thickening and amorphous increased signal throughout the scapholunate ligament including both the dorsal and volar components consistent with partial tear without discrete fluid signal intensity full-thickness tear defect. Triangular fibrocartilage complex (TFCC): The triangular fibrocartilage including its foveal and styloid attachments as well as the dorsal and volar radioulnar ligaments are normal. The ulnar collateral ligament, ulnotriquetral ligament and men iscal homologue are normal. The extensor carpi ulnaris tendon sheath is normal. Extensor wrist: Mild tendinopathy and partial-thickness longitudinal split tear of the extensor carpi ulnaris centere d at the level of the tip of the ulnar styloid process. Mild tenosynovitis along the extensor carpi r adialis longus and brevis tendons. There is mild tendinopathy and longitudinal split tearing of the d istal extensor carpi ulnaris brevis tendon. Remaining extensor tendons of the wrist are normal. Flexor wrist: The flexor tendons of the wrist are normal. There appears be a decrease cross-sectional area and defo rmation of the median nerve at the level of the carpal tunnel with bowing of the flexor retinaculum w hich projects 3 mm beyond the line connecting the volar margin of the triquetrum and hamate. Findings suggest possibility of carpal tunnel syndrome. Guyon's canal: Guyon's canal including the ulnar nerve and artery are normal. Bones/other: Marrow edema in the distal radius surrounding a mildly comminuted intra-articular fracture with nondi splaced fracture lines best evident on axial series 3 & 9, image 19 which divides the distal articula r surface into 3, radial sided, ulnar-sided and dorsal sided fragments. Alignment remains essentially anatomic with no significant fracture gap or incongruity along the articular surface. No other fract ures identified. The suspected fracture of the triquetrum on the prior radiograph corresponds to a co rticated heterotopic ossicle situated within the triquetral scaphoid ligament which is likely sequela of old trauma. There is polyarticular osteoarthritis, moderate severity at the distal radioulnar, tr iscaphe and first carpal metacarpal joints and mild at the wrist, midcarpal and remaining carpal meta carpal joints. IMPRESSION: 1. Nondisplaced mildly comminuted intra-articular fracture of the distal left radius. 2. Age-indeterminate partial tear of the scapholunate ligament including both the dorsal and volar co mponents. 3. Mild to moderate polyarticular osteoarthritis at the left wrist and carpus. 4. Constellation of findings suggesting possible carpal tunnel syndrome with compression of the media n nerve. Correlate clinically for signs/symptoms of carpal tunnel median neuropathy. 5. Mild tendinopathy and longitudinal split tears of the extensor carpi ulnaris and extensor carpi ra dialis brevis tendons. Reviewed, dictated and finalized at location A. IMPRESSION: 1. Nondisplaced mildly comminuted intra-articular fracture of the distal left r adius. 2. Age-indeterminate partial tear of the scapholunate ligament including both t he dorsal and volar components. 3. Mild to moderate polyarticular osteoarthritis at the left wrist and carpus. 4. Constellation of findings suggesting possible carpal tu
== END 2024-05-23 09:31 ==
LOC: GOSHIMG 09:31
PROVIDERS: PCP Internal Medicine; Visit Provider Orthopaedic Surgery
DX: S62.112A Displaced fracture of triquetrum [cuneiform] bone, left wrist, initial encounter for closed fracture (principal); X58.XXXA Exposure to other specified factors, initial encounter
CPT/HCPCS: 73221

== ENCOUNTER 2025-08-04 11:53 | Emergency (ER) | payer MEDICARE, SELFPAY ==
[2025-08-04 12:03] VITALS: BP 136/77; PULSE 67; RESP 16; TEMP 35.9; O2SAT 99
--- NOTE | 2025-08-04 12:16 | ED.EAR ---
HPI - Ear Problem General Chief complaint: Ear Stated complaint: Ears Clogged Time Seen by Provider: 08/04/25 12:00 Source: patient and RN notes reviewed Mode of arrival: ambulatory Limitations: no limitations History of Present Illness HPI Narrative: 65-year-old male presents to the [facility] complaining of right ear pain the last 2 days. Patient denies any recent swimming but he states he does but his head under water when he takes about. Patient denies any discharge, upper respiratory symptoms, cough, fevers, chills, nausea, vomiting, diarrhea, dizziness, lightheadedness, abdominal pain, chest pain, difficulty breathing, wheezing, or any other symptoms. Patient has been taking help with symptoms. Related Data Home Medications ?Medication ?Instructions ?Recorded ?Confirmed ?Last Taken ?Type multivitamin (Multiple Vitamins 1 tablet PO DAILY 06/21/24 08/04/25 Unknown History tablet) omega-3 fatty acids [Fish Oil] 1 cap PO DAILY 06/21/24 08/04/25 Unknown History lutein 1 tablet PO DAILY 01/03/25 08/04/25 Unknown History Allergies Allergy/AdvReac Type Severity Reaction Status Date / Time sulfamethoxazole AdvReac Nausea Verified 08/04/25 12:03 Review of Systems Review of Systems: CONSTITUTIONAL: Denies fever, chills, body aches, or sweats. EYES: Denies visual changes, redness, or discharge. ENT: Denies rhinorrhea, congestion, sore throat. Positive for otalgia. CARDIOVASCULAR: Denies chest pain, palpitations, dizziness, lightheadedness, or edema. RESPIRATORY: Denies cough or dyspnea. GASTROINTESTINAL: Denies abdominal pain, nausea, vomiting, or diarrhea. GENITOURINARY: Denies dysuria or hematuria. SKIN: Denies rash or itching. MUSCULOSKELETAL: Denies back pain, joint pain, or myalgia. NEUROLOGIC: Denies headache, numbness, or weakness. PSYCHIATRIC: Denies anxiety or depression. All other systems reviewed are negative, except as documented in HPI. [facility] Past Medical History Medical History Hypertension Trochanteric bursitis, left hip RONALD (obstructive sleep apnea) Hyperlipidemia Polk's palsy Erectile dysfunction Nephrolithiasis Type 2 diabetes mellitus without complication, without long-term current use of insulin Chronic fatigue Hypertriglyceridemia Surgical History Surgical History History of left knee replacement History of total right knee replacement 09/30/2021 Social History Social History Smoking status: Never smoker Second hand tobacco smoke exposure: Yes Additional smoking assessment comments: DENIES ANY FORM OF TOBACCO USE Alcohol intake: current Drinks per week: 1 Alcohol use details: occasionally Substance use: never Substance use type: does not use Do You Feel Safe in your Home?: Yes Lack of Transportation: No Lack of Food: Never True Current Housing: I Have Housing Concerned About Future Housing: No Difficulty Paying Gas/Electric Bills: No Difficulty Paying for Meds: No Currently Unemployed: No Education: High School Diploma/GED Difficulty w/ Childcare or Family Care: No Living arrangements: with family Occupation/Education: retired 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 There is no relevant family history pertinent to the patient complaint. Exam Narrative: GENERAL: This is a well-nourished, well-developed adult, in no apparent distress. They are non ill-appearing, nontoxic appearing. HEAD: normocephalic, atraumatic. EYES: Sclera clear/white. Conjunctiva normal. Vision is grossly intact. Extraocular movements intact EARS: External ears normal, left auditory canal clear and without drainage, right tragal tenderness, right auditory canal mildly erythemic with mild swelling. No exudate. TMs normal without perforation. Hearing grossly intact. NOSE: External nose normal with no obvious nasal discharge, nasal turbinates without redness, no rhinorrhea. THROAT: Mucous membranes moist, posterior pharynx clear, without erythema or swelling. Uvula midline. NECK: Neck supple, non-tender without lymphadenopathy, masses or thyromegaly. CARDIOVASCULAR: Regular rate and rhythm without murmurs, gallops, or rubs. RESPIRATORY: Clear to auscultation. Breath sounds equal bilaterally. No wheezes, rales, or rhonchi. SKIN: warm, Dry, intact with no suspicious lesions or rash, good texture and turgor. NEURO: awake, alert, and oriented to person, place and time. There were no obvious focal neurologic abnormalities. EXTREMITIES: No joint tenderness, effusion, or edema noted. Course Course Emergency Course: Portions of this record may have been created with voice recognition software Level of Care: Express Care Visit Vital Signs Vital signs: Vital Signs Temperature 96.7 F L 08/04/25 12:03 Pulse Rate 67 08/04/25 12:03 Respiratory Rate 16 08/04/25 12:03 Blood Pressure 136/77 08/04/25 12:03 Pulse Oximetry 99 08/04/25 12:03 Temperature 96.7 F L 08/04/25 12:03 Pulse Rate 67 08/04/25 12:03 Respiratory Rate 16 08/04/25 12:03 Blood Pressure 136/77 08/04/25 12:03 Pulse Oximetry 99 08/04/25 12:03 Reviewed Medical Decision Making MDM Narrative Medical decision making narrative: Appears patient has early right-sided otitis externa. Will treat with ofloxacin ear drops. Discussed physical exam findings. Advised supportive measures and signs/symptoms to go to the ER. Pt is appropriate for outpt treatment and f/u. Differential Diagnosis Differential Diagnosis: Otitis media, otitis externa, with respiratory infection, impacted cerumen Vital Signs Vital Signs: Vital Signs Temperature 96.7 F L 08/04/25 12:03 Pulse Rate 67 08/04/25 12:03 Respiratory Rate 16 08/04/25 12:03 Blood Pressure 136/77 08/04/25 12:03 Pulse Oximetry 99 08/04/25 12:03 Temperature 96.7 F L 08/04/25 12:03 Pulse Rate 67 08/04/25 12:03 Respiratory Rate 16 08/04/25 12:03 Blood Pressure 136/77 08/04/25 12:03 Pulse Oximetry 99 08/04/25 12:03 Critical Care Time Critical Care Time Critical Care Time: No Discharge Plan Discharge Clinical Impression: Otitis externa Qualifiers: Otitis externa type: diffuse Chronicity: acute Laterality: right Qualified Code(s): H60.311 - Diffuse otitis externa, right ear Patient Disposition: Home Condition: Stable Instructions: Antibiotic Form, How to Use Ear Drops (ED), Ear Infection (ED) Additional Instructions: Take antibiotic drops as directed. Tylenol and ibuprofen as needed for pain or fevers. Follow instructions on the bottle. Avoid water or anything into the ear for one week Follow up with your personal physician for further evaluation and treatment within 3-5days. If your symptoms persist, change or worsen significantly, go to the emergency department for further evaluation. Patient Language: Guinean Prescriptions: New ofloxacin 0.3 % drops 10 drp RIGHT EAR DAILY 7 Days Qty: 10 0RF No Action lutein 1 tablet PO DAILY omega-3 fatty acids [Fish Oil] 1 cap PO DAILY multivitamin [Multiple Vitamins] Tablet 1 tablet PO DAILY sildenafil [Viagra] 50 mg tablet 50 mg PO DAILY PRN (Reason: sexual activity) Qty: 20 3RF Rx Instructions: administer 30 minutes to 4 hours before activity rosuvastatin 20 mg tablet 20 mg PO DAILY Qty: 90 3RF metformin 500 mg tablet 500 mg PO BID Qty: 180 1RF aspirin 81 mg tablet,delayed release (DR/EC) 81 mg PO BID 14 Days Qty: 28 0RF (DME) blood-glucose meter [Accu-Chek Guide Me Glucose Mtr] Misc See Rx Instructions .Route Qty: 1 0RF Rx Instructions: Use to check BS once daily (DME) Accu-Chek Guide test strips Strip See Rx Instructions .Route Qty: 100 3RF Rx Instructions: Use to check BS once daily. (DME) lancets [Accu-Chek Softclix Lancets] Misc See Rx Instructions .Route Qty: 100 3RF Rx Instructions: Use to check BS once daily. ascorbate calcium (vitamin C) 500 mg tablet 500 mg PO BID Qty: 90 3RF lisinopril 10 mg tablet 10 mg PO DAILY Qty: 90 1RF Follow-up/Referrals: Maurilio Olivo DO [Primary Care Provider, Internal Medicine] Time of Disposition: 12:13
== END 2025-08-04 12:21 | disposition home or self-care (01) ==
PROVIDERS: PCP Internal Medicine
DX: H60.311 Diffuse otitis externa, right ear (principal); I10 Essential (primary) hypertension; E11.9 Type 2 diabetes mellitus without complications; Z79.84 Long term (current) use of oral hypoglycemic drugs; E78.1 Pure hyperglyceridemia; Z96.653 Presence of artificial knee joint, bilateral; Z79.82 Long term (current) use of aspirin
CPT/HCPCS: 99213; G0463

== ENCOUNTER 2025-09-07 07:31 | Outpatient (CLI) | payer MEDICARE, SELFPAY ==
--- OUTSIDE RECORDS SUMMARY | 2022-12-06 03:00 | XMS_ITS | Continuity of Care Document ---
Author Organization [employer] [place] Address [address] [facility] [address] [place] [address] Phone Care Team Providers Care Slate Splitting Supervisor Name Role Phone Evens PT,MPT,ATC, Spencer Unavailable Unavai lable Procedures Procedure Date Therapeutic Activities Neuromuscular Re-Ed Therapeutic Exercise Therapeutic Activities Neuromuscular Re-Ed Therapeutic Exercise Manual Therapy Therapeutic Activities Neuromuscular Re-Ed Therapeutic Exercise Manual Therapy Therapeutic Activities Neuromuscular Re-Ed Therapeutic Exercise Manual Therapy Doc neg elder mal no plan PT Re-evaluation Therapeutic Activities Neuromuscular Re-Ed Therapeutic Exercise Manual Therapy Therapeutic Activities Neuromuscular Re-Ed Therapeutic Exercise Manual Therapy Therapeutic Activities Neuromuscular Re-Ed Therapeutic Exercise Manual Therapy Therapeutic Activities Neuromuscular Re-Ed Therapeutic Exercise Manual Therapy Therapeutic Activities Neuromuscular Re-Ed Manual Therapy Therapeutic Activities Neuromuscular Re-Ed Therapeutic Exercise Manual Therapy Therapeutic Activities Neuromuscular Re-Ed Therapeutic Exercise Manual Therapy Therapeutic Activities Neuromuscular Re-Ed Therapeutic Exercise Manual Therapy Doc neg elder mal no plan PT Evaluation Moderate Complexity Therapeutic Activities Neuromuscular Re-Ed Therapeutic Exercise Therapeutic Activities Therapeutic Activities Therapeutic Exercise Neuromuscular Re-Ed Therapeutic Activities Therapeutic Exercise Therapeutic Activities Therapeutic Exercise Therapeutic Activities Therapeutic Exercise Therapeutic Activities Therapeutic Exercise Therapeutic Activities Therapeutic Exercise Therapeutic Activities Therapeutic Exercise Therapeutic Activities Therapeutic Exercise Therapeutic Exercise Therapeutic Activities Therapeutic Exercise Manual Therapy Therapeutic Activities Therapeutic Activities Manual Therapy Therapeutic Exercise Progress Note Therapeutic Exercise Manual Therapy Therapeutic Activities Therapeutic Activities Manual Therapy Therapeutic Exercise Therapeutic Activities Therapeutic Exercise Therapeutic Exercise Therapeutic Activities Therapeutic Activities Therapeutic Exercise Therapeutic Exercise Therapeutic Activities Manual Therapy Therapeutic Exercise Therapeutic Activities Manual Therapy Therapeutic Activities Therapeutic Exercise Manual Therapy Therapeutic Exercise Manual Therapy Therapeutic Activities PT Evaluation Moderate Complexity Therapeutic Activities Therapeutic Exercise Progress Note Therapeutic Activities Neuromuscular Re-Ed Therapeutic Exercise Manual Therapy Therapeutic Activities Neuromuscular Re-Ed Therapeutic Exercise Therapeutic Activities Neuromuscular Re-Ed Therapeutic Exercise Therapeutic Activities Therapeutic Exercise Therapeutic Activities Neuromuscular Re-Ed Therapeutic Exercise Neuromuscular Re-Ed Therapeutic Activities Therapeutic Exercise Therapeutic Activities Progress Note Neuromuscular Re-Ed Therapeutic Exercise Neuromuscular Re-Ed Therapeutic Activities Therapeutic Exercise Manual Therapy Therapeutic Activities Manual Therapy Therapeutic Exercise Neuromuscular Re-Ed Manual Therapy Neuromuscular Re-Ed Therapeutic Activities Therapeutic Exercise Therapeutic Activities Neuromuscular Re-Ed Manual Therapy Therapeutic Exercise Therapeutic Activities Therapeutic Exercise Manual Therapy Jc-06-2021 Neuromuscular Re-Ed PT Evaluation Moderate Complexity Therapeutic Activities Therapeutic Exercise Manual Therapy Advance Directives Directive Yes / No Effective Date File Name No Information Encounters Encounter Description Practice Location Reason(s) For Visit Diagnoses Date Provider Providers Copied on Encounter [facility] [address] [place] [address], [place], [place], [id number], tel:[phone] [place] No Information b-2 3 Evens Xavier , [place], [place]. Referring Provider: Phoenix Mclean [address] [place] [address] [address], [place], [place], [facility]. tel:[phone] [facility] [address] [place] [address], [place], [place], [id number], tel:[phone] [place] No Information 3 Evens Xavier , [place], [place]. Referring Provider: Leon Olivarez [facility] [address], [place], [facility]. tel:[phone] [facility] [address] [place] [address], [place], [id number], [place] tel:[phone] [place] No Information 1 3 Evens Xavier , [place], [place]. Referring Provider: Phoenix Mclean Toya [facility] [address], [place], [facility]. tel:[phone] [facility] [address] [place], [place] [address], [place], [id number], [place] tel:[phone] [place] No Information b0 3 Evens Xavier , [place]. Referring Provider: Leon Olivarez [facility] [address], [place], [facility]. tel:[phone] [facility] [address] [place], [place] [address], [place], [address], [place] tel:[phone] [place] No Information b-0 3 Evens Xavier , [place]. Referring Provider: Phoenix Mclean YayoToya [facility] [address], [place], [address]. tel:+ [facility] [address], [place], [place], [address], [place] tel:[phone] [place] No Information 3 Evesn Martínezn. , [place], [place]. Referring Provider: Yayo Olivarez[address] [place] [address] [address], [place], [facility]. tel: [facility] [address], [place], [id number], [place] tel:[phone] [place] No Information 3 Evens Martínezn. , [place], [place]. Referring Provider: Phoenix Mclean Toya [facility] [address], [place], [facility]. tel: [facility] [address], [place], [place], [address], [place] tel:[phone] [place] No Information 3 Evens Martínezn. , [place]. Referring Provider: Leon Olivarez [facility] [address], [place], [facility]. tel: [facility] [address], [place], [place], [address], [place] tel:[phone] [place] No Information 3 Evens Palmer. , [place]. Referring Provider: Phoenix Mclean [facility] [address], [place], [facility]. tel:+ [facility] [address], [place], [place], [address], [place] tel:[phone] [place] No Information 3 Evens Martínezn. , [place]. Referring Provider: Leon Olivarez [facility] [address], [place], [address]. tel:+ [facility], [place], [place], [address], [place] tel:[phone] [place] No Information 2- 3 Evens [place]. , [place], [place]. Referring Provider: Phoenix Mclean YayoToya [facility] [address], [place], [facility]. tel:[phone] [facility], [address], [place], [place], [address], [place] tel:[phone] [place] No Information 0- 3 Evens Spencer. , [place], [place]. Referring Provider: Yayo Olivarez[address] [place] [address] [address], [place], [facility]. tel: [facility] [address], [place], [address], [place] tel:[phone] [place] No Information 3 Elia Tyson. . Referring Provider: Leon Olivarez [place] [address] [address], [place], [facility]. tel:[phone] [facility], [facility] [address], [place], [place], [address], [place] tel:[phone] [place] No Information 2 Evens Spencer. , [place], [place]. Referring Provider: Leon Olivarez [place] [address] [address], [place], [facility]. tel:[phone] [facility] [address], [place], [place], [address], [place] tel:[phone] [place] No Information 2 Evens Spencer. , [place], [place]. Referring Provider: Leon Olivarez [facility] [address], [place], [facility]. tel:[phone] [facility], [address], [place], [place], [address], [place] tel:[phone] [place] No Information 0- 2 Evens Spencer. , [place], [place]. Referring Provider: Leon Olivarez [facility] [address], [place], [address]. tel: [facility] [address], [place], [place], [address], [place] tel:[phone] [place] No Information Mar-0 8- 2 Horner Spencer. , [place], [place]. Referring Provider: Yayo Olivarez[address] [place] [address] [address], [place], [facility]. tel: [facility] [address], [place], [address], [place] tel:[phone] [place] No Information Mar-0 2 Horner [place]. , [place], [place]. Referring Provider: Phoenix Mclean [address] [place] [address] [address], [place], [facility]. tel: [facility] [address] [place] [address], [place], [id number], [place] tel:[phone] [place] No Information Mar-0 1- 2 Horner Spencer. , [place], [place]. Referring Provider: Leon Olivarez [place] [address] [address], [place], [facility]. tel: [facility] [address] [place], [place] [address] [address], [place], [id number], [place] tel:[phone] [place] No Information Feb-2 2 Horner [place]. , [place], [place]. Referring Provider: Leon Olivarez [facility] [address], [place], [facility]. tel: [facility] [address], [place], [address], [place] tel:[phone] [place] No Information Feb-2 2-202 2 Horner Spencer. , [place], [place]. Referring Provider: Leon Olivarez [facility] [address], [place], [address]. tel: [facility], [place], [place], [address], [place] tel:[phone] [place] No Information b 2 Horner [place]. , [place], [place]. Referring Provider: Phoenix Mclean [address] [place] [address] [address], [place], [facility]. tel:+ [facility], [address], [place], [place], [address], [place] tel:[phone] [place] No Information b 2 Horner [place]. , [place], [place]. Referring Provider: Phoenix Mclean [address] [place] [address] [address], [place], [facility]. tel: [facility] [address], [place], [address], [place] tel:[phone] [place] No Information 2 Horner [place]. , [place]. Referring Provider: Phoenix Mclean [place] [address] [address], [place], [facility]. tel: [facility] [address], [place], [place], [address], [place] tel:[phone] [place] No Information b0 2 Horner [place]. , [place]. Referring Provider: Phoenix Mclean [place] [address] [address], [place], [facility]. tel: [facility] [address], [place], [place], [address], [place] tel:[phone] [place] No Information Feb-0 2 Horner [place]. , [place]. Referring Provider: Leon Olivarez [place] [address] [address], [place], [facility]. tel: [facility], [address], [place], [place], [address], [place] tel:[phone] [place] No Information Feb-0 2 Horner [place]. , [place]. Referring Provider: Phoenix Mclean YayoToya [facility] [address], [place], [address]. tel:[phone] [facility] [address], [place], [place], [address], [place] tel:[phone] [place] No Information 2 Horner [place]. , [place]. Referring Provider: Leon Olivarez [facility] [address], [place], [facility]. tel: [facility], [address], [place], [address], [place] tel:[phone] [place] No Information 2 Horner [place]. , [place]. Referring Provider: Leon Olivarez [facility] [address], [place], [facility]. tel: [facility] [address], [place], [address], [place] tel:[phone] [place] No Information 2 Horner [place]. , [place], [place]. Referring Provider: Leon Olivarez [place] [address] [address], [place], [facility]. tel: [facility] [address], [place], [place], [address], [place] tel:[phone] [place] No Information 2 Horner Spencer. , [place], [place]. Referring Provider: Leon Olivarez [facility] [address], [place], [address]. tel: [facility] [address], [place], [place], [address], [place] tel:[phone] [place] No Information 2 Horner [place]. , [place], [place]. Referring Provider: Leon Olivarez [facility] [address], [place], [address]. tel: [facility], [place], [address], [place] tel:[phone] [place] No Information 2 Horner Spencer. , [place], [place]. Referring Provider: Phoenix Mclean [address] [place] [address] [address], [place], [address]. tel:[phone] [facility] [address] [facility] [address], [place], [id number], [place] tel:[phone] [place] No Information 2 [facility] , [place], [place]. Referring Provider: Phoenix Mclean [address] [place] [address] [address], [place], [facility]. tel:[phone] [facility] [facility] [address], [place], [place], [address], [place] tel:[phone] [place] No Information 2 Horner Spencer. , [place], [place]. Referring Provider: Phoenix Mclean [facility] [address], [place], [address]. tel: [facility] [address] [facility] [address] [address], [place], [place], [address], [place] tel:[phone] [place] No Information 1 Katja Mcdonald. . Referring Provider: Phoenix Mclean [place] [place] [address] [address], [place], [address]. tel: [facility] [address] [facility] [address], [place], [address], [place] tel:[phone] [place] No Information 1 Katja Hughesa. . Referring Provider: Phoenix Mclean [facility] [address], [place], [address]. tel:[phone] [facility], [place], [place], [address], [place] tel:[phone] [place] No Information 1 Dawn Vega. . Referring Provider: Phoenix Keilaenma [address] [place] [address] [address], [place], [facility]. tel:[phone] [facility] [address] [place], [place] [address], [place], [address], tel:[phone] [place] No Information 0 1 Garrels Smiley. . Referring Provider: Phoenix Mclean [address] [place] [address] [address], [place], [facility]. tel: [facility] [address] [place], [place] [address] [address], [place], [address], [place] tel:[phone] [place] No Information 0 1 Garrels Smiley. . Referring Provider: Phoenix Mclean [address] [place] [address] [address], [place], [facility]. tel: [facility] [address] [place] [address], [place], [address], [place] tel:[phone] [place] No Information 0 1 Garrels Smiley. . Referring Provider: Phoenix Mclean [address] [place] [address] [address], [place], [facility]. tel: [facility] [address] [place] [address], [place], [address], [place] tel:[phone] [place] No Information 1 Marilyn Finch. . Referring Provider: Phoenix Mclean [address] [place] [address] [address], [place], [facility]. tel: [facility] [address] [place], [place] [address], [place], [address], [place] tel:[phone] [place] No Information 1 Garrels Smiley. . Referring Provider: Phoenix Mclean [address] [place] [address] [address], [place], [facility]. tel: [facility] [place] [address], [place], [address], tel:[phone] [place] No Information Apr-2 2-202 1 Garrels Smiley. . Referring Provider: Phoenix Mclean [address] [place] [address] 10, [place], [facility]. tel:[phone] [facility] [address] [place] [address], [id number], tel:[phone] [place] No Information Apr-2 0-202 1 Garrels Smiley. . Referring Provider: Phoenix Mclean [address] [place] [address], [place], [facility]. tel:[phone] [place] [address], [place], [place], [address], tel:[phone] [place] No Information Apr-0 8-202 1 Garrels Smiley. . Referring Provider: Phoenix Mclean [address] [place] [address], [place], [facility]. tel:[phone], [id number], tel:[phone] [place] No Information Apr-0 6-202 1 Garrels Smiley. . Referring Provider: Phoenix Mclean [address] [place] [address], [place], [facility]. tel:[phone], [id number], tel:[phone] [place] No Information Apr-0 1-202 1 Garrels Smiley. . Referring Provider: Phoenix Mclean [address] [place] [address] 10, [place], [facility]. tel:[phone] Family History Family Member Type Diagnosis Age At Onset No Information Payers Payer name Insurance type Covered libertarian ID Authorsoumya rivero(s) [facility] [id number] Social History Type Description Quantity Date Captured Comments Sex Male Smoking Status No Information Chief Complaint And Reason For Visit No Information Reason For Referral Reason For Referral No Information History Of Present Illness Encounter Date Complaint History Of Prese nt Illness No Information Functional Status Date Functional Assessmen t No Information Instructions Date Instruction Additional Infor dede Giving encouragement to exercise Related to Overweight Giving encouragement to exercise Related to Overweight Giving encouragement to exercise Related to Overweight Giving encouragement to exercise Related to Overweight Giving encouragement to exercise Related to Overweight Giving encouragement to exercise Related to Overweight Assessments Type Assessment Date No Information Patient Care Teams Name Effective Dates (start - stop) Status Members No Information
--- NOTE | ~2025-09-07 | XR_ITS ---
XR knee LT 3V 09/07/2025 07:57 Indication: Left knee pain Procedure: 3 views left knee Comparison: Comparison to multiple prior studies sequentially, with oldest reviewed study dated 09/29/2022. Findings: There is a left total knee arthroplasty. No fracture, subluxation or dislocation. No significant joint effusion. No foreign bodies. Impression: 1: No acute bone or joint abnormality. Reviewed, dictated and finalized at location I. EL INSPECTOR Impression: 1: No acute bone or joint abnormality.
--- OUTSIDE RECORDS SUMMARY | 2025-09-07 07:36 | XMS_ITS | Clinical Summary ---
Author Organization [address] Address [address] [place] [id number] Care Team Providers Care Central Aisle Cashier Name Role Phone Maurilio Olivo DO Primary Care Provider [phone] Allergies No known active allergies Medications lisinopril (PRINIVIL,ZESTRI L) 20 mg tablet daily 02/01/2017 Act clary metFORMIN (GLUCOPHAGE) 500 mg tablet bid 01/04/2017 Active rosuvastatin (CRESTOR) 10 mg tablet Take 10 mg by mouth. 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 Tinea corporis 02/03/2017 Nevus, non-neoplastic 02/03/2017 Other dermatophytoses 02/03/2017 Surgical History Surgery Date Site/Laterality Comments COLONOSCOPY Medical History Medical History Date Comments Hypertension Hypertension Hx Other Medical GERD, hiatal he rnia Hx Other Medical Dyslipidemia Hx Other Medical Diabetes Type I I Social History Tobacco Use Types Packs/Day Years Used Date Smoking Tobacco: Never Smokeless Tobacco: Never Alcohol Use Standard Drinks/Week Comments Yes 0 (1 standard drink = 0.6 oz pur e alcohol) Sex and Gender Information Value Date Recorded Sex Assigned at Not on file 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 Gender Identity Not on file Sexual Orientation Straight 06/12/2020 7: 37 AM CDT Last Filed Vital Signs Vital Sign Reading Time Taken Comments Blood Pressure 108/69 01/12/2018 8:29 AM CDT Pulse 71 01/12/2018 8:29 AM CDT Temperature - - Respiratory Rate - - Oxygen Saturation - - Inhaled Oxygen Concentration - - Weight 104.8 kg (231 lb) 01/12/2018 8:29 AM CDT Height 180.3 cm (5' 11) 01/12/2018 8:29 AM CDT Body Mass Index 32.22 01/12/2018 8:29 AM CDT Plan of Treatment Not on file Insurance [facility] Care Teams Central Aisle Cashier Relationship Specialty Start Date End Date Maurilio Olivo DO PCP - General 01/20/14
--- OUTSIDE RECORDS SUMMARY | 2025-09-07 07:36 | XMS_ITS | Clinical Summary ---
Author Organization [facility] Address [address] [place] [address] Care Team Providers Care Embedded Linux Developer Name Role Phone Maurilio Olvio DO Primary Care Provider [phone] Source Comments [facility],non-owned Affiliates and Associated Physician Practices is amultiple site organization consisting of ambulatory clinics and hospital sitesin [place], [place], [place] and [place]. This disclosure is being madepursuant to the Care Everywhere program and may not contain all information available regarding this patient. Last updated 18.[facility] Medications * Be aware that medications may not be up to date on this document. Alwaysverify current medications with the patient. triamcinolone acetonide (KENALOG) 0.1 % cream 80 g 11 03/21/2017 Active metFORMIN (GLUCOPHAGE) 500 MG tablet 01/04/2017 Active amLODIPine (NORVASC) 5 MG tablet 02/01/2017 Active ketoconazole (NIZORAL) 2 % cream 60 g 1 02/03/2017 Active lisinopril (PRINIVIL; ZESTRIL) 20 MG tablet 02/01/2017 Active rosuvastatin (CRESTOR) 10 MG tablet Take 10 mg by mouth DAILY. 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 Gender Identity Not on file Sexual Orientation Not on file Last Filed Vital Signs Vital Sign Reading Time Taken Comments Blood Pressure - - Pulse - - Temperature - - Respiratory Rate - - Oxygen Saturation - - Inhaled Oxygen Concentration - - Weight 98.9 kg (218 lb) 05/24/2016 10:31 AM CDT Height 180.3 cm (5' 11) 05/24/2016 10:31 AM CDT Body Mass Index 30.4 05/24/2016 10:31 AM CDT Plan of Treatment Health Maintenance Due Date Last Done Comments COLOGUARD (AGES 45-75) - COL ON CA SCREENING 1958 COLON MONITORING 1958 COLONOSCOPY - COLON CA SCREENING 1958 CT COLONOGRAPHY - COLON CA SCREENING 1958 Colorectal Cancer Screening 1958 FIT - COLON CA SCREENING 1958 FLEX SIG - COLON CA SCREENING 1958 MEDICARE AWV 12 MONTHS 1958 HEPATITIS C SCREENING 06/25/1976 DTAP/TDAP/TD VACCINES (1 - Tdap) 1977 PNEUMOCOCCAL VACCINE 50+ (1 of 1 - PCV) 2008 ZOSTER VACCINE (1 of 2) 2008 AAA SCREENING 2023 DEPRESSION SCREENING 10/09/2024 COVID-19 VACCINE (1 - 2024-2 6 season) 2025 INFLUENZA VACCINE (#1) 2025 Respiratory Syncytial Virus (RSV) Vaccine Pt: or over 60 yrs (1 - 1-dose 75+ series) 2033 HEPATITIS B VACCINE Aged Out No longe r eligible based on patient's age to complete this topic HIB VACCINE Aged Out No longer eligi ble based on patient's age to complete this topic HPV VACCINE Aged Out No longer eligi ble based on patient's age to complete this topic MENINGOCOCCAL (Group B) VACC INE SHARED DECISION-MAKING Aged Out No longer eligibl e based on patient's age to complete this topic MENINGOCOCCAL GROUPS A/C/Y/W VACCINE Aged Out No longer eligible b ased on patient's age to complete this topic Insurance MEDICARE MEDICARE SUPPLEMENT PAYOR GENERIC Care Teams Embedded Linux Developer Relationship Specialty Start Date End Date Maurilio Olivo DO PCP - General 04/20/16
--- OUTSIDE RECORDS SUMMARY | 2025-09-07 07:36 | XMS_ITS | Encounter Summary ---
Author Organization [facility] Address [address] [facility] [place] [address] Care Team Providers Care Acquisitions Assistant Name Role Phone Maurilio Olivo DO Primary Care Provider [phone] Encounter Details Date Type Department Care Team (Late st Contact Info) Description 04/17/2024 Lab Requisition [facility] - DermPath Lab [address] [facility], [facility] [place] [address] Rani Rincon MD [address] [facility] [address] [place] [address] Social History Tobacco Use Types Packs/Day Years Used Date Smoking Tobacco: Former Smokeless Tobacco: Never Alcohol Use Standard Drinks/Week Comments No 0 (1 standard drink = 0.6 oz pur e alcohol) Sex and Gender Information Value Date Recorded Sex Assigned at Not on file 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 Gender Identity Not on file Sexual Orientation Not on file documented as of this encounter Plan of Treatment Not on file documented as of this encounter Procedures Procedure Name Priority Date/Time Associated Diagnosis Comments DERMATOPATHOLOGY Routine 04/17/2024 8:17 AM CDT documented in this encounter Results * DERMATOPATHOLOGY (04/17/2024 8:17 AM CDT) Case Report Dermatopathology Report Case: [id number] Authorizing Provider: Rani Rincon MD Collected: 04/17/2024 08:17 AM Ordering Location: [facility] Physician [facility] - Received: 04/19/2024 06:29 AM DermPath Lab Pathologist: Rox Art MD Specimen: Skin, left lateral cheek 2:34 PM CDT DERMATOPATHOLOGY LABORATORY Final Diagnosis Specimen A. SKIN, left lateral cheek: PIGMENTED SEBORRHEIC KERATOSIS (L82.1) 4 2:34 PM CDT DERMATOPATHOLOGY LABORATORY at 1434 CDT Clinical History Nevus vs lentigo vs SK, r/o MM growing; irregular color 4 2:34 PM CDT DERMATOPATHOLOGY LABORATORY Gross Description Specimen A: Received is one formalin filled container labeled with the patient's name and designated left lateral cheek. The specimen consists of a shave biopsy measuring 8x7x1 mm. Jar 0. 4 2:34 PM CDT DERMATOPATHOLOGY LABORATORY Microscopic Description Specimen A. SKIN, left lateral cheek: Sections show an acanthotic lesion composed of relatively uniform keratinocytes. There is hyperkeratosis and pseudo horn cysts. Pigment is present in the keratinocytes composing this tumor. 4 2:34 PM CDT DERMATOPATHOLOGY LABORATORY Disclaimer An external and internal positive and negative controls are appropriate for the histochemical, immunohistochemical and immunofluorescence stain(s) in this case (if any), except where stated explicitly. The performance characteristics of the stain(s) cited in this report were developed and its performance characteristic determined by the Dermatopathology Laboratory at [facility], directed by Dr. Walker Smith. These tests need not be, and therefore are not, approved by the [place] Food and Drug Administration. The tests are used for clinical purposes. Billing Codes Specimen Charges Stain Charges 27320 1 4 2:34 PM CDT DERMATOPATHOLOGY LABORATORY Embedded Images 4 2:34 PM CDT DERMATOPATHOLOGY LABORATORY Pathology/Cytolo gy TISSUE SPECIMEN FROM SKIN / Unknown 04/17/2024 8:17 AM CDT 04/19/2024 6:29 AM CDT us Rani Rincon MD LAB - PATHOLOGY/CYTOLOGY OR DERABLES Final Result DERMATOPATHOLOGY LABORATORY [facility] - Department of Dermatology [address] [phone] documented in this encounter Visit Diagnoses Not on filedocumented in this encounter Care Teams Acquisitions Assistant Relationship Specialty Start Date End Date Maurilio Olivo DO PCP - General 04/20/16 documented as of this encounter
== END 2025-09-07 07:32 | disposition home or self-care (01) ==
PROVIDERS: PCP Internal Medicine; Visit Provider Orthopaedic Surgery
DX: T84.84XA Pain due to internal orthopedic prosthetic devices, implants and grafts, initial encounter (principal); Z96.652 Presence of left artificial knee joint
CPT/HCPCS: 73562